=== PATIENT | male | born 1940 | race Hispanic/Latino ===

== ENCOUNTER 2017-11-09 09:21 | Outpatient (CLI) | payer MEDICARE ==
--- NOTE | 2017-11-09 09:53 | XRay Report ---
BILATERAL HAND RADIOGRAPHS INDICATION: Bilateral hand pain. COMPARISON: None similar. FINDINGS: AP, lateral and oblique bilateral hand radiographs demonstrate intact articulation. No suspicious erosions. Slight DIP joint degenerative spurring may be noted developing. 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 Please correlate. Thank you for the opportunity to participate in this patient's care.
== END 2017-11-09 09:22 | disposition home or self-care (01) ==
LOC: SPVIMAG 09:21
PROVIDERS: ATTEND Orthopaedic Surgery Sports Medicine
DX: M19.042 Primary osteoarthritis, left hand (principal); M19.041 Primary osteoarthritis, right hand